=== PATIENT | male | born 1955 | race Caucasian/White ===

== ENCOUNTER 2019-01-14 07:25 | Inpatient (IN) | payer BC ==
[~2019-01-14] VITALS: Ht 182.9 cm; Wt 106.0 kg
[2019-01-14] MEDS ORDERED: nitroGLYCERIN 0.4mg SUBLingual tab SL PRN ×3 (07:45→09:30)
[2019-01-14] MEDS ORDERED: metoprolol tartrate 1mg/ml inj IV ONE (07:55)
[2019-01-14] MEDS ORDERED: atorvastatin 20mg tablet PO SCH (08:00)
[2019-01-14 08:20] LABS: BASOPHILS # (AUTO) 0.1 X10'3 (0-0.2); EOSINOPHILS % (AUTO) 0.3 % (0-6); LYMPHOCYTES # (AUTO) 1.4 X10'3 (1.1-4.8); LYMPHOCYTES % (AUTO) 10.8 % (21-51); NEUTROPHILS % (AUTO) 80.3 % (42-75)
[2019-01-14 08:23] LABS: BASOPHILS % (AUTO) 0.5 % (0-1); HEMATOCRIT 48.6 % (42.0-52.0); HEMOGLOBIN 16.9 g/dl (14.0-17.9); MEAN CORPUSCULAR HEMOGLOBIN 32.2 PG (27.0-31.0); MEAN CORPUSCULAR HGB CONC 34.8 g/dL (33.0-36.5); MEAN CORPUSCULAR VOLUME 92.4 FL (78-98); MEAN PLATELET VOLUME 9.2 FL (7.4-10.4); MONOCYTES % (AUTO) 8.1 % (2-12); NEUTROPHILS # (AUTO) 10.2 X10'3 (1.8-7.7); PLATELET COUNT 155 X10'3 (140-440); RED BLOOD COUNT 5.26 X10'6 (4.70-6.10); RED CELL DISTRIBUTION WIDTH 13.8 % (11.5-14.5); WHITE BLOOD COUNT 12.7 X10'3 (4.5-11.0)
[2019-01-14 08:50] LABS: ALANINE AMINOTRANSFERASE 21 U/L (12-78); ALBUMIN 3.6 G/DL (3.4-5.0); ALBUMIN/GLOBULIN RATIO 0.8 (1.1-1.5); ALKALINE PHOSPHATASE 69 IU/L (46-116); ANION GAP 8 (8-16); ASPARTATE AMINO TRANSFERASE 15 U/L (10-37); BLOOD UREA NITROGEN 13 MG/DL (7-18); BUN/CREATININE RATIO 13.4 (5.4-32.0); CALCIUM 9.1 MG/DL (8.5-10.1); CHLORIDE 100 MMOL/L (99-107); CREATININE 0.97 MG/DL (0.60-1.10); GLUCOSE 128 MG/DL (70-104); POTASSIUM 4.1 MMOL/L (3.5-5.1); SODIUM 134 MMOL/L (135-145); TOTAL PROTEIN 8.1 G/DL (6.4-8.2); TROPONIN I < 0.04 NG/ML (0.0-0.05); eGFR 78 ML/MIN
[2019-01-14] MEDS ORDERED: metoprolol tartrate 1mg/ml inj IV PRN (09:30)
[2019-01-14] MEDS ORDERED: potassium Cl 20 mEq SR tablet PO PRN ×2 (09:30)
[2019-01-14] MEDS ORDERED: ondansetron/PF 4mg/2ml inj IV PRN (09:30)
[2019-01-14] MEDS ORDERED: bisacodyl 10mg suppository rectal RC PRN (09:30)
[2019-01-14] MEDS ORDERED: magnesium 4gm in 100ml NS 100 ML IV PRN (09:30)
[2019-01-14] MEDS: metoprolol succinate 25mg (24-HOUR) SR. Tablet PO SCH ×2 (09:30→10:10)
[2019-01-14] MEDS ORDERED: acetaminophen 325mg tablet PO PRN ×2 (09:30)
[2019-01-14] MEDS ORDERED: HYDROcodone/acetaminophen 10/325mg tab PO PRN (09:30)
[2019-01-14] MEDS ORDERED: aspirin 325mg tablet PO ONE (09:30)
[2019-01-14] MEDS ORDERED: ketorolac trometh. 30mg/ml inj. IV ONE (09:30)
[2019-01-14] MEDS ORDERED: potassium CL 10mEq/100ml bag 100 ML IV PRN ×2 (09:30)
[2019-01-14] MEDS ORDERED: HYDROcodone/acetaminophen 5mg/325mg tablet PO PRN (09:30)
[2019-01-14] MEDS ORDERED: acetaminophen 650mg rectal suppository RC PRN (09:30)
[2019-01-14] MEDS ORDERED: morphine 2 MG/ML inj. syringe IV PRN ×2 (09:30)
[2019-01-14] MEDS ORDERED: aminophylline 250mg/10ml inj. IV PRN (09:30)
[2019-01-14] MEDS ORDERED: magnesium hydroxide 30ml (MOM) UD suspension PO PRN (09:30)
[2019-01-14] MEDS ORDERED: regadenoson 0.4mg/5ml syringe IV PRN (09:30)
[2019-01-14] MEDS ORDERED: magnesium Cl slow-release 64mg tablet PO PRN (09:30)
[2019-01-14] MEDS ORDERED: mag hydrox/Alum hydrox/simeth 30ml oral suspension PO PRN (09:30)
[2019-01-14] MEDS ORDERED: diphenhydrAMINE 25mg capsule PO PRN (09:30)
[2019-01-14] MEDS ORDERED: magnesium 2GM in 50ml NS 50 ML IV PRN (09:30)
[2019-01-14 09:39] LABS: PLATELET ESTIMATE NORMAL; TOTAL CELLS COUNTED 100
[2019-01-14 09:40] LABS: ANISOCYTOSIS FEW; TOXIC GRANULATION 1+
[2019-01-14] MEDS: K and/or MAG REPLACEMENT MC SCH (10:09)
[2019-01-14] MEDS: normal saline 1000ml 1,000 ML IV SCH ×2 (10:10→19:56)
[2019-01-14 10:19] LABS: D-DIMER 5.33 MG/L FEU (0-0.50)
[2019-01-14 10:59] LABS: CLARITY,URINE CLEAR (Clear); COLOR,URINE YELLOW (Yellow); GLUCOSE, URINE NEGATIVE (Neg); KETONES,URINE NEGATIVE (Neg); LEUKOCYTE ESTERASE ,URINE NEGATIVE (Neg); NITRITES, URINE NEGATIVE (Neg); OCCULT BLOOD,URINE NEGATIVE (Neg); PH,URINE 6.5 (4.8-8.0); PROTEIN,URINE TRACE mg/dl (Neg); UROBILINOGEN,URINE 0.2 E.U/dL (0.2-1.0)
--- NOTE | 2019-01-14 11:00 | NUR ---
Patient in room ED 6. I have received report from YUDI Brewer and had the opportunity to ask questions and assume patient care.
[2019-01-14 11:07] LABS: UA COLLECTION TYPE URINAL
--- NOTE | 2019-01-14 11:11 | NUR ---
Pt arrived on unit.
[2019-01-14 11:21] LABS: SQUAMOUS EPITHELIAL CELL,UR NONE SEEN /LPF (FEW)
[2019-01-14 11:23] LABS: RBC,URINE NONE SEEN /HPF (0-2); WBC,URINE NONE SEEN /HPF (0-4)
[2019-01-14 11:26] LABS: BACTERIA,URINE NONE SEEN /HPF (Neg)
[2019-01-14 11:30] VITALS: BP 168/96
[2019-01-14 11:59] LABS: HEMOGLOBIN A1C 5.8 % (4.5-6.2)
[2019-01-14] MEDS ORDERED: TIZA4TAB11 PO (12:32)
[2019-01-14] MEDS ORDERED: LISI-600 PO (12:37)
[2019-01-14] MEDS ORDERED: TRAZ150T78 PO (12:37)
--- NOTE | 2019-01-14 13:44 | NUR ---
Sent to Dr Zurita PAGER ID: [phone] MESSAGE: RE: Yayo Tellez [id number]. FYI pt drinks 4-5 beers/night and/or trazodone to relax. -Astrid [phone]
[2019-01-14 15:00] VITALS: BP 188/99
[2019-01-14] MEDS ORDERED: iohexol 350MG/ML 100ml bottle IV ONE (15:17)
[2019-01-14] MEDS ORDERED: thiamine inj. 100 MG in normal saline 100ml IV soln 100 ML IV ONE (16:40)
[2019-01-14] MEDS ORDERED: LORazepam 2 mg/ml vial IV PRN (16:40)
[2019-01-14] MEDS ORDERED: LORazepam 1 MG tablet PO PRN (16:40)
--- NOTE | 2019-01-14 17:35 | NUR ---
Sent to Dr Zurita PAGER ID: [phone] MESSAGE: RE: Yayo Tellez 3023C. Pt BP 178. -Astrid [phone]
--- NOTE | 2019-01-14 18:05 | NUR ---
Patient in room PCU 3023. I have received report from Astrid BAGLEY and had the opportunity to ask questions and assume patient care.
--- NOTE | 2019-01-14 18:07 | NUR ---
Sent to Dr Zurita PAGER ID: [phone] MESSAGE: RE: Yayo Tellez [id number]. Pt DID receive metoprolol IV push this AM, but NO metoprolol PO SR. Do you still want to give a dose now? -Astrid [phone]
[2019-01-14] MEDS ORDERED: amLODIPine 5mg tablet PO ONE (18:15)
[2019-01-14] MEDS ORDERED: metoprolol succinate 25mg (24-HOUR) SR. Tablet PO ONE (18:15)
--- NOTE | 2019-01-14 18:21 | NUR ---
SPoke with Dr Zurita about pt's BP, he did not receive PO lopressor in ER, but did receive IVP. Dr Zurita aware and ordered amlodipine 5mg PO and lopressor 50mg PO ER now.
--- NOTE | 2019-01-14 18:26 | NUR ---
Problems reprioritized. Patient report given, questions answered & plan of care reviewed with YUDI Santiago.
[2019-01-14 19:00] VITALS: BP 169/92
[2019-01-14] MEDS ORDERED: heparin 10,000 units/1 ML INJ IV ONE (19:55)
[2019-01-14] MEDS: levoFLOXACIN-Levaquin 750MG/D5 150 ML IV SCH (19:57)
[2019-01-14] MEDS ORDERED: heparin, porcine 5000 units/ml vial SQ SCH (20:00)
[2019-01-14] MEDS ORDERED: apixaban 5mg tablet PO SCH (20:00)
[2019-01-14] MEDS: tizanidine 4mg tablet PO SCH (20:01)
[2019-01-14] MEDS: traZODone 150mg tablet PO SCH (20:05)
[2019-01-14] MEDS: lisinopril 20mg tablet PO SCH (20:05)
[2019-01-14] MEDS: heparin 25,000 UNIT/250ml bag 250 ML IV SCH (22:05)
[2019-01-14 23:00] VITALS: BP 164/86
[2019-01-15] VITALS (9 sets, daily range): BP systolic 117–160; BP diastolic 59–106
[2019-01-15 01:09] LABS: CLARITY,URINE CLEAR (Clear); COLOR,URINE YELLOW (Yellow); GLUCOSE, URINE NEGATIVE (Neg); KETONES,URINE NEGATIVE (Neg); LEUKOCYTE ESTERASE ,URINE NEGATIVE (Neg); NITRITES, URINE NEGATIVE (Neg); OCCULT BLOOD,URINE NEGATIVE (Neg); PH,URINE 7.5 (4.8-8.0); PROTEIN,URINE TRACE mg/dl (Neg)
[2019-01-15 01:14] LABS: UA COLLECTION TYPE CLN CATCH MIDSTREAM
[2019-01-15 01:17] LABS: RBC,URINE NONE SEEN /HPF (0-2)
[2019-01-15 01:18] LABS: BACTERIA,URINE FEW /HPF (Neg); SQUAMOUS EPITHELIAL CELL,UR FEW /LPF (FEW); URINE AMPHETAMINE SCREEN NEGATIVE (Neg); URINE BARBITUATE SCREEN NEGATIVE (Neg); URINE BENZODIAZEPINES SCREEN NEGATIVE (Neg); URINE CANNABINOID SCREEN POSITIVE (Neg); URINE COCAINE SCREEN NEGATIVE (Neg); URINE METHADONE SCREEN NEGATIVE (Neg); URINE OPIATE SCREEN NEGATIVE (Neg); URINE PHENCYCLIDINE SCREEN NEGATIVE (Neg)
[2019-01-15 01:19] LABS: WBC,URINE NONE SEEN /HPF (0-4)
[2019-01-15 06:01] LABS: EOSINOPHILS % (AUTO) 0.4 % (0-6); HEMOGLOBIN 17.1 g/dl (14.0-17.9); NEUTROPHILS # (AUTO) 10.5 X10'3 (1.8-7.7); WHITE BLOOD COUNT 13.3 X10'3 (4.5-11.0)
[2019-01-15 06:03] LABS: BASOPHILS # (AUTO) 0.1 X10'3 (0-0.2); BASOPHILS % (AUTO) 0.6 % (0-1); HEMATOCRIT 49.8 % (42.0-52.0); LYMPHOCYTES # (AUTO) 1.7 X10'3 (1.1-4.8); LYMPHOCYTES % (AUTO) 12.8 % (21-51); MEAN CORPUSCULAR HEMOGLOBIN 32.2 PG (27.0-31.0); MEAN CORPUSCULAR HGB CONC 34.4 g/dL (33.0-36.5); MEAN CORPUSCULAR VOLUME 93.7 FL (78-98); MEAN PLATELET VOLUME 9.6 FL (7.4-10.4); MONOCYTES % (AUTO) 7.7 % (2-12); NEUTROPHILS % (AUTO) 78.5 % (42-75); PLATELET COUNT 162 X10'3 (140-440); RED BLOOD COUNT 5.32 X10'6 (4.70-6.10); RED CELL DISTRIBUTION WIDTH 13.6 % (11.5-14.5)
[2019-01-15 06:18] LABS: ALANINE AMINOTRANSFERASE 42 U/L (12-78); ALBUMIN 3.1 G/DL (3.4-5.0); ALBUMIN/GLOBULIN RATIO 0.7 (1.1-1.5); ALKALINE PHOSPHATASE 81 IU/L (46-116); ANION GAP 10 (8-16); ASPARTATE AMINO TRANSFERASE 41 U/L (10-37); BILIRUBIN,TOTAL 0.8 MG/DL (0.1-1.0); BLOOD UREA NITROGEN 11 MG/DL (7-18); BUN/CREATININE RATIO 12.6 (5.4-32.0); CALCIUM 8.5 MG/DL (8.5-10.1); CHLORIDE 101 MMOL/L (99-107); CREATININE 0.87 MG/DL (0.60-1.10); GLUCOSE 133 MG/DL (70-104); POTASSIUM 3.9 MMOL/L (3.5-5.1); SODIUM 135 MMOL/L (135-145); TOTAL CARBON DIOXIDE 24.3 MMOL/L (24-32); TOTAL PROTEIN 7.6 G/DL (6.4-8.2); eGFR 89 ML/MIN
--- NOTE | 2019-01-15 06:20 | NUR ---
Problems reprioritized. Patient report given, questions answered & plan of care reviewed with Ese BAGLEY.
[2019-01-15 06:22] LABS: AMYLASE 56 U/L (25-115); CHOL/HDL RATIO 2.1 (0.00-4.99); CHOLESTEROL 152 MG/DL (0-200); HDL CHOLESTEROL 72 MG/DL (35-60); LIPASE 213 U/L (73-393); PHOSPHORUS 2.3 MG/DL (2.3-4.5); TRIGLYCERIDES 57 MG/DL (20-135)
--- NOTE | 2019-01-15 06:32 | NUR ---
Patient in room PCU 3023. I have received report from Jennifer BAGLEY and had the opportunity to ask questions and assume patient care.
[2019-01-15 06:34] LABS: LDL CHOLESTEROL 76 MG/DL (50-100)
[2019-01-15] MEDS ORDERED: lisinopril 5mg tablet PO SCH (08:00)
[2019-01-15] MEDS ORDERED: aspirin 81mg tablet.DR PO SCH ×2 (08:00→15:17)
[2019-01-15] MEDS: K and/or MAG REPLACEMENT MC SCH (08:00)
[2019-01-15] MEDS ORDERED: aspirin 325mg tablet PO SCH (08:30)
[2019-01-15] MEDS: multivitamins, therapeutics tablet PO SCH (08:31)
[2019-01-15] MEDS: lisinopril 20mg tablet PO SCH ×2 (08:31→19:25)
[2019-01-15] MEDS: atorvastatin 10mg tablet PO SCH (08:32)
[2019-01-15] MEDS: metoprolol succinate 25mg (24-HOUR) SR. Tablet PO SCH (08:32)
[2019-01-15] MEDS: thiamine 100mg tablet PO SCH (08:32)
[2019-01-15] MEDS: folic acid 1mg tablet PO SCH (08:33)
[2019-01-15] MEDS: amLODIPine 5mg tablet PO SCH (08:33)
[2019-01-15] MEDS: levoFLOXACIN-Levaquin 750MG/D5 150 ML IV SCH (08:35)
[2019-01-15] MEDS: normal saline 1000ml 1,000 ML IV SCH ×2 (08:36→15:28)
--- NOTE | 2019-01-15 08:51 | NUR ---
Page PAGER ID: [phone] MESSAGE: Room 3023C Yayo Tellez: Patient's HR is no in A-Fib with HR in the 120's, please advise. Thank you, Ese ext [phone]
[2019-01-15] MEDS: tizanidine 4mg tablet PO SCH ×2 (09:00→19:24)
[2019-01-15] MEDS ORDERED: diltiazem 5mg/ml 5ml inj. IV ONE (09:05)
[2019-01-15] MEDS ORDERED: diltiazem-D5W 125mg/125ml 125 ML IV SCH (09:05)
--- NOTE | 2019-01-15 09:45 | NUR ---
Page Dr. Zurita PAGER ID: [phone] MESSAGE: Room 3023C Yayo Tellez: Patient will receive the resting portion of the Betty scan now and will complete the stress portion later this afternoon due to Sherie luevano, they wanted to make sure he was stable. JACKELIN, thank you Ese ext [phone]
--- NOTE | 2019-01-15 10:00 | NUR ---
Spoke with Dr. Zurita regarding patient's condition. Ordered one time dose 10mg Cardizem IV push. Then Cardizem drip at 5mg for patient's A-Fib.
[2019-01-15] MEDS ORDERED: diltiazem-D5W 125mg/125ml 100 ML IV SCH (10:10)
[2019-01-15] MEDS: heparin 25,000 UNIT/250ml bag 250 ML IV SCH ×3 (10:34→23:22)
[2019-01-15] MEDS: diltiazem-NS 100mg/100ml 100 ML IV SCH (11:07)
--- NOTE | 2019-01-15 12:15 | NUR ---
Page Dr. Zurita PAGER ID: [phone] MESSAGE: Room 3023C Yayo Tellez: Just Dr. Ayo johnson canceled patient's Betty Scan due to his PE. Can we take him off NPO and place on Heart Healthy diet? Thank you, Ese ext [phone]
[2019-01-15] MEDS: heparin 10,000 units/1 ML INJ IV PRN ×2 (14:17→21:15)
--- NOTE | 2019-01-15 14:32 | NUR ---
Page Dr. Zurita PAGER ID: [phone] MESSAGE: Room 3023C [place] med[place]: Patient's troponin 0.04. Just elizabeth, thank you, Ese ext [phone]
--- NOTE | 2019-01-15 17:14 | NUR ---
Page Dr. 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 Thank you, Ese ext [phone].
--- NOTE | 2019-01-15 18:24 | NUR ---
Problems reprioritized. Patient report given, questions answered & plan of care reviewed with Karina BAGLEY. Patient stable at time of transfer of care.
--- NOTE | 2019-01-15 18:34 | NUR ---
Patient in room PCU 3023. I have received report from Ese BAGLEY and had the opportunity to ask questions and assume patient care.
[2019-01-15] MEDS: lactobacillus rhamnosus 10,000 MMU CELLS/CAPSULE PO SCH (19:24)
[2019-01-15] MEDS: traZODone 150mg tablet PO SCH (19:54)
[2019-01-16] VITALS: BP 161/75
[2019-01-16] MEDS: normal saline 1000ml 1,000 ML IV SCH ×2 (00:18→07:20)
[2019-01-16] MEDS: diltiazem-NS 100mg/100ml 100 ML IV SCH (00:27)
[2019-01-16 02:00] VITALS: BP 119/62
[2019-01-16 03:36] LABS: BASOPHILS # (AUTO) 0.1 X10'3 (0-0.2); BASOPHILS % (AUTO) 0.7 % (0-1); EOSINOPHILS % (AUTO) 0.3 % (0-6); HEMATOCRIT 47.1 % (42.0-52.0); HEMOGLOBIN 16.2 g/dl (14.0-17.9); LYMPHOCYTES # (AUTO) 1.5 X10'3 (1.1-4.8); LYMPHOCYTES % (AUTO) 14.2 % (21-51); MEAN CORPUSCULAR HEMOGLOBIN 32.2 PG (27.0-31.0); MEAN CORPUSCULAR HGB CONC 34.3 g/dL (33.0-36.5); MEAN PLATELET VOLUME 9.7 FL (7.4-10.4); MONOCYTES # (AUTO) 0.9 X10'3 (0-0.9); MONOCYTES % (AUTO) 8.5 % (2-12); NEUTROPHILS # (AUTO) 8.3 X10'3 (1.8-7.7); NEUTROPHILS % (AUTO) 76.3 % (42-75); PLATELET COUNT 149 X10'3 (140-440); RED BLOOD COUNT 5.01 X10'6 (4.70-6.10); RED CELL DISTRIBUTION WIDTH 13.6 % (11.5-14.5); WHITE BLOOD COUNT 10.9 X10'3 (4.5-11.0)
[2019-01-16 03:49] LABS: ALANINE AMINOTRANSFERASE 85 U/L (12-78); ALBUMIN 2.6 G/DL (3.4-5.0); ALBUMIN/GLOBULIN RATIO 0.6 (1.1-1.5); ALKALINE PHOSPHATASE 97 IU/L (46-116); AMYLASE 29 U/L (25-115); ANION GAP 10 (8-16); ASPARTATE AMINO TRANSFERASE 64 U/L (10-37); BILIRUBIN,TOTAL 0.8 MG/DL (0.1-1.0); BLOOD UREA NITROGEN 14 MG/DL (7-18); BUN/CREATININE RATIO 16.7 (5.4-32.0); CALCIUM 8.6 MG/DL (8.5-10.1); CHLORIDE 101 MMOL/L (99-107); CREATININE 0.84 MG/DL (0.60-1.10); GLUCOSE 136 MG/DL (70-104); LIPASE 107 U/L (73-393); MAGNESIUM 1.9 MG/DL (1.5-2.4); PHOSPHORUS 1.9 MG/DL (2.3-4.5); POTASSIUM 3.6 MMOL/L (3.5-5.1); SODIUM 135 MMOL/L (135-145); TOTAL CARBON DIOXIDE 23.9 MMOL/L (24-32); TOTAL PROTEIN 6.8 G/DL (6.4-8.2); eGFR > 90 ML/MIN
[2019-01-16 04:00] VITALS: BP 133/82
[2019-01-16 06:00] VITALS: BP 146/86
--- NOTE | 2019-01-16 06:10 | NUR ---
Patient in room PCU 3023. I have received report from Karina BAGLEY and had the opportunity to ask questions and assume patient care.
--- NOTE | 2019-01-16 06:14 | NUR ---
Problems reprioritized. Patient report given, questions answered & plan of care reviewed with Ese BAGLEY.
[2019-01-16] MEDS: atorvastatin 10mg tablet PO SCH (07:20)
[2019-01-16] MEDS: multivitamins, therapeutics tablet PO SCH (07:20)
[2019-01-16] MEDS: folic acid 1mg tablet PO SCH (07:20)
[2019-01-16] MEDS: amLODIPine 5mg tablet PO SCH (07:21)
[2019-01-16] MEDS: thiamine 100mg tablet PO SCH (07:21)
[2019-01-16] MEDS: metoprolol succinate 25mg (24-HOUR) SR. Tablet PO SCH (07:21)
[2019-01-16] MEDS: tizanidine 4mg tablet PO SCH (07:22)
[2019-01-16] MEDS: lactobacillus rhamnosus 10,000 MMU CELLS/CAPSULE PO SCH (07:22)
[2019-01-16] MEDS: lisinopril 20mg tablet PO SCH (07:22)
[2019-01-16] MEDS: K and/or MAG REPLACEMENT MC SCH (08:00)
[2019-01-16] MEDS ORDERED: apixaban 5mg tablet PO SCH (10:10)
[2019-01-16] MEDS ORDERED: metoprolol succinate 25mg (24-HOUR) SR. Tablet PO SCH ×2 (10:10→10:45)
[2019-01-16] MEDS ORDERED: LEVO750T46 PO (10:16)
[2019-01-16] MEDS ORDERED: ATOR10TA PO (10:16)
[2019-01-16] MEDS ORDERED: ASPI-1071 PO (10:16)
[2019-01-16] MEDS ORDERED: thiamine tablet PO (10:16)
[2019-01-16] MEDS ORDERED: NITR0.4T51 SL (10:16)
[2019-01-16] MEDS ORDERED: METO-395 PO (10:16)
[2019-01-16] MEDS ORDERED: MULT-1179 PO (10:16)
[2019-01-16] MEDS ORDERED: LACT1CAP26 PO (10:16)
[2019-01-16] MEDS ORDERED: folic acid tablet PO (10:16)
[2019-01-16] MEDS ORDERED: APIX5TAB3 PO (10:16)
[2019-01-16] MEDS ORDERED: metoprolol tartrate 50mg tablet PO ONE (10:30)
[2019-01-16 11:00] VITALS: BP 138/91
[2019-01-16] MEDS ORDERED: levoFLOXACIN 750MG TABLET PO SCH (11:00)
--- NOTE | 2019-01-16 12:32 | NUR ---
Patient stable for discharge per MD orders. All discharge instructions reviewed with patient and all questions answered. New prescriptions e-scripted to patient's preferred pharmacy. PIV and bedside monitor discontinued. Belongings collected and sent with patient. Patient left in private vehicle with family. Patient walked down to lobby with PCT aide.
--- NOTE | 2019-01-16 15:48 | NUR ---
Page Dr. Zurita PAGER ID: [phone] MESSAGE: Room 3023C Yayo Tellez: Patient who was discharged today called and stated his insurance will not cover the Eliquis without authorization. Could we get authorization for him? Thank you, Ese ext [phone].
--- NOTE | 2019-01-16 17:24 | NUR ---
Spoke with Dr. Zurita regarding patient's need for authorization for Eliquis. Dr. Zurita requested that case management to speak with patient's insurance tomorrow to provide authorization for medication. Information will be relayed to case management in the morning.
[2019-01-17 08:10] LABS: % FREE PSA 26.4 % (.); PSA, FREE 0.29 ng/mL
--- NOTE | 2019-01-17 11:22 | NUR ---
Spoke with case management regarding patient's insurance authorization and provided her the patient's information to help obtain authorization for the medication.
== END 2019-01-16 12:32 | disposition home or self-care (01) | DRG 175 ==
LOC: ER 07:26 → ED HOLD 10:42 → EDBEDREQ 10:48 → PCU 3S 11:11
PROVIDERS: ADMIT Family Medicine; ATTEND Family Medicine
DX: I26.99 Other pulmonary embolism without acute cor pulmonale (principal); J18.1 Lobar pneumonia, unspecified organism; J91.8 Pleural effusion in other conditions classified elsewhere; I10 Essential (primary) hypertension; Z90.49 Acquired absence of other specified parts of digestive tract; M47.9 Spondylosis, unspecified; I48.91 Unspecified atrial fibrillation; G47.00 Insomnia, unspecified; F32.9 Major depressive disorder, single episode, unspecified; F41.9 Anxiety disorder, unspecified; F10.10 Alcohol abuse, uncomplicated; Y90.9 Presence of alcohol in blood, level not specified; M62.838 Other muscle spasm; F12.10 Cannabis abuse, uncomplicated; E78.5 Hyperlipidemia, unspecified; R00.0 Tachycardia, unspecified; Z82.49 Family history of ischemic heart disease and other diseases of the circulatory system; Z81.8 Family history of other mental and behavioral disorders; Z71.51 Drug abuse counseling and surveillance of drug abuser; Z79.899 Other long term (current) drug therapy
CPT/HCPCS: 36415; 71045; 71250; 71275; 74176; 78451; 80053; 80061; 80305; 81001; 82150; 83036; 83690; 83735; 84100; 84153; 84154; 84443; 84484; 85025; 85379; 85610; 85730; 87081; 93005; 93306; 93970; 96374; 96375; 99291; A9500; G0378; J1644; J1885; J1956; J3411; J3490; J7030; Q9967

== ENCOUNTER 2024-07-04 06:29 | Inpatient (IN) | payer BC, MEDICARE ==
[~2024-07-04] VITALS: Ht 182.9 cm; Wt 97.3 kg
[~2024-07-04 06:29] MED LIST: APIX5TAB3 PO; ASPI-1071 PO; ATOR10TA PO; LACT1CAP26 PO; LEVO750T68 PO; LISI20TA28 PO; METO-395 PO; MULT-25 PO; NITR0.4T51 SL; TRAZ150T78 PO; folic acid tablet PO; thiamine tablet PO
[2024-07-04] MEDS ORDERED: iohexol 350MG/ML 100ml bottle IV ONE (06:42)
--- NOTE | 2024-07-04 06:49 | Physician Documentation ---
History of Present Illness ~ Chief Complaint: Stroke Alert Stated Complaint: STROKE Time Seen by MD: 06:36 OK to notify your PCP?: Yes Source: patient, RN/MD, RN notes reviewed, old records Mode of Arrival: POV Exam Limitations: no limitations HPI This patient has a history of DVTs on Xarelto compliant with his medications. Patient went to sleep at 8:00 p.m. last night and was doing fine he was not fatigued or tired normal evening. Unfortunately when he woke up he had slurred speech and left-sided upper extremity weakness. Patient is able to ambulate has good balance he denies any fevers or chills no sick contacts no nausea vomiting no vision changes. He is otherwise in good health has no other complaints at this time. His is at the bedside. Medication Reconciliation Allergies: Coded Allergies: No Known Allergies (Unverified , 01/14/19) Scheduled Apixaban (Eliquis), 10 MG PO BID Aspirin (Ecotrin*), 81 MG PO DAILY@0830 Atorvastatin Calcium (Lipitor), 40 MG PO DAILY Lactobacillus Rhamnosus (Culturelle), 10,000 MMU PO Q12H Levofloxacin (Levofloxacin), 750 MG PO DAILY@11 Lisinopril (Lisinopril), 1 TAB PO BID, (Reported) Metoprolol Succinate (Metoprolol Succinate), 100 MG PO DAILY Multivitamin with Folic Acid (Thera Tablet), 1 EACH PO Q24H Trazodone Hcl (Trazodone Hcl), 1 TAB PO HS, (Reported) [folic acid tablet], 2 MG PO DAILY [thiamine tablet], 100 MG PO DAILY Scheduled PRN Nitroglycerin SL* (Nitrostat SL*), 0.4 MG SL Q5MIN PRN for chest pain Past Medical History Past Medical History: Hypertension Past Surgical History: no surgical history Drug Use: none Lives In: Home Review of Systems All Other Systems at this time: Reviewed and Negative Physical Exam Vital Signs: RN Vital Signs have been reviewed: Yes, Temperature: 98.0, Source: Temporal, Heart Rate: 83, Respiratory Rate: 16, BP: 145/100, Pulse Oximetry: 97, Weight: 97.300 Oxygen Flow Rate: 0 General Appearance General: The patient is well developed, well nourished, nontoxic appearing and is in no acute distress. Skin: [place], warm and dry with no rashes. HEENT: Head was normocephalic and atraumatic. Eyes - pupils equal, round, reactive to light and accommodation. Extraocular movements were intact. Conjunctivae were nonicteric. Ears - bilateral tympanic membranes were normal. The mouth and oropharynx were clear with moist mucous membranes. There were no pharyngeal exudates or erythema. Neck: Supple and nontender. There was no jugular venous distention, lymphadenopathy, thyromegaly or masses. Chest: Clear to auscultation bilaterally without wheezes, rales or rhonchi. No accessory muscle use. No dullness to percussion. Heart: Rate regular and rhythmic. S1, S2. No murmurs. Palpation of the chest wall was normal. No rubs or thrills. Abdomen: Soft, nontender and nondistended. Positive bowel sounds. No guarding or rebound. No hepatosplenomegaly or palpable masses. Extremities: No cyanosis, clubbing or edema. The patient moves all extremities. Pulses were equal and symmetric. Neurologic: Slurred speech. Left upper extremity 4/5 weakness. Normal gait. Equal ocular movements intact. Unable to extend his left hand slight pronator drift. Psychologic: The patient was oriented to person, place and time. The patient demonstrated appropriate judgement and insight. Progress Progress Note Patient discussed with tele neurology 7:45 a.m. discussed the case with the hospitalist for admission Results/Orders Reviewed/noted all lab results: Yes Results/Orders Orders - MACHO HERNANDEZ MD Monitor (07/04/24 06:34) 2 Large Bore Ivs (07/04/24 06:34) Electrocardiogram (07/04/24 06:34) Chest,Single View (07/04/24 07:00) Accucheck (07/04/24 06:34) Ct Stroke Alert (07/04/24 06:46) BMP (07/04/24 06:34) Cta Neck/Head (07/04/24 06:50) [place] Prov.Neuro Consult (07/04/24 06:34) Page Hospitalist (07/04/24 07:38) Fill Out Med Reconciliation (07/04/24 07:38) Echocardiogram (07/04/24 07:40) Hgb A1c (07/04/24 06:38) Liver Panel (07/04/24 06:38) MG (07/04/24 06:38) Completed Orders - MACHO HERNANDEZ MD Cbc/Diff (07/04/24 06:34) Electrocardiogram (07/04/24 06:34) Chest,Single View (07/04/24 07:00) Ct Stroke Alert (07/04/24 06:46) PTT (07/04/24 06:34) Pt Inr (07/04/24 06:34) Cta Neck/Head (07/04/24 06:50) Iohexol 350mg/Ml 100ml (Omnipaque 350mg/ (07/04/24 06:42) Aspirin 81mg Chew Tablet (Aspirin 81mg C (07/04/24 07:05) Medications Received in ER Medications (Trade) Dose Ordered Sig/Sirena Route PRN Reason Start Time Stop Time Status Last Admin Dose Admin (aspirin 81MG chew tablet) 324 mg ONCE ONCE PO 07/04/24 07:05 07/04/24 07:06 DC 07/04/24 07:31 324 MG Vital Signs 07/04/24 07/04/24 07/04/24 07/04/24 06:36 07:10 07:10 07:26 Temp 98.0 Pulse 83 74 76 Resp 16 15 15 17 B/P (MAP) 145/100 138/91 138/91 (107) Pulse Ox 97 96 95 O2 Flow Rate 0 07/04/24 07:49 Pulse 91 Resp 18 B/P (MAP) 138/91 (107) Pulse Ox 96 Laboratory Tests Test 07/04/24 06:37 07/04/24 06:38 Glucometer 114 H White Blood Count 6.5 Red Blood Count 5.26 Hemoglobin 17.0 Hematocrit 49.7 Mean Corpuscular Volume 94.6 Mean Corpuscular Hemoglobin 32.2 H Mean Corpuscular Hemoglobin Concent 34.1 Red Cell Distribution Width 14.0 Platelet Count 166 Mean Platelet Volume 9.6 Neutrophils (%) (Auto) 60.5 Lymphocytes (%) (Auto) 27.0 Monocytes (%) (Auto) 6.8 Eosinophils (%) (Auto) 4.3 Basophils (%) (Auto) 1.4 H Neutrophils # (Auto) 4.0 Lymphocytes # (Auto) 1.8 Monocytes # (Auto) 0.4 Eosinophils # (Auto) 0.3 Basophils # (Auto) 0.1 CBC Comment Prothrombin Time 12.5 H INR International Normalized Ratio 1.2 Activated Partial Thromboplast Time 32 Coagulation Comments Sodium Level 138 Potassium Level 4.0 Chloride Level 104 Carbon Dioxide Level 28.6 Anion Gap 5 L Blood Urea Nitrogen 17 Creatinine 1.26 H Estimated GFR/1.73 m2 57 BUN/Creatinine Ratio 13.5 Glucose Level 115 H Calcium Level 9.3 Albumin 4.0 Chemistry Comments Re-Evaluation Re-Evaluation : Re-Evaluation: Improved Progress Patient does have some drooling on the left side of his mouth difficulty with speech. CT scan of the head was negative for any intracranial bleed which was reassuring. Tele neurology was consulted at 7:00 a.m. who recommended aspirin and a call back if the CTA is positive. Patient's vitals were reassuring he received the aspirin and pending admission. 8:00 a.m. patient was seen and examined. Patient is given reassurance. The patient had a stroke alert called. There are no large vessel occlusions that are treatable. Unfortunately he is still having symptoms and may have some permanent disability. Patient was given some fluids. Patient's received the aspirin, echocardiogram was ordered and stroke workup was also ordered in the hospitalist was consulted. Laboratory work shows a normal CBC no signs of infection or anemia chemistry also within normal limits slight BUN 17 creatinine 1.26 with a GFR of 57 glucose 115. Patient will be hydrated LFTs are pending. Coagulation within normal limits. Patient was then admitted for further workup and care. Case discussed with the hospitalist Continuous property assessment monitor interpretation shows normal sinus rhythm heart rate 80s, no ectopy, normal, my interpretation. Pulse oximetry monitor interpretation shows normal oxygenation 97% room air, normal, my interpretation. EKG/XRAY/CT/US/VASC/MRI EKG : Intepreting Monitor?: Yes Additional Comment Ordering Physician: MACHO HERNANDEZ MD Exam Name: ELECTROCARDIOGRAM Technologist: [facility] Test Date: 2024-07-04 Test Time: 07:05:19 Pat Name: PRASANNA BIRCH Department: [facility]- Room: Gender: Lehr Attendant: : 1955 Requested By: MACHO HERNANDEZ Order Number: [id number] Reading MD: Dr. Macho Hernandez Measurements Intervals [place] Rate: 86 P: 0 [place]: 0 QRS: -42 QRSD: 164 T: 48 QT: 420 QTc: 503 Interpretive Statements Atrial fibrillation RBBB and LAFB Baseline wander in lead(s) V2 Electronically Signed On 07-04-2024 7:36:[address] Macho Hernandez Please click the below link to view image of tracing. Chest X-Ray : Additional Comments EXAM: XR Chest, 1 View CLINICAL INDICATION: Stroke Alert TECHNIQUE: Frontal view of the chest. COMPARISON: None FINDINGS: LUNGS AND PLEURAL SPACES: Unremarkable. No consolidation. No pneumothorax. HEART: Unremarkable. No cardiomegaly. MEDIASTINUM: Unremarkable. Normal mediastinal contour. BONES/JOINTS: Unremarkable. No acute fracture. OTHER FINDINGS: . IMPRESSION: No acute cardiopulmonary process. #1: CT: head With Contrast?: No Impression EXAM: CT Head Without Intravenous Contrast CLINICAL INDICATION: Stroke Alert TECHNIQUE: Axial computed tomography images of the head/brain without intravenous contrast. This CT exam was performed using one or more of the following dose reduction techniques: automated exposure control, adjustment of the mA and/or kV according to patient size, and/or use of iterative reconstruction technique. CONTRAST: COMPARISON: None FINDINGS: BRAIN AND EXTRA-AXIAL SPACES: Areas of decreased attenuation in the deep cerebral white matter are consistent with small vessel ischemic/degenerative changes. The cerebral and cerebellar sulci are prominent consistent with brain atrophy. No acute intracranial hemorrhage, midline shift or mass effect. If symptoms persist, further evaluation with MRI is recommended. BONES/JOINTS: Unremarkable. No acute fracture. SOFT TISSUES: Unremarkable. SINUSES: Unremarkable as visualized. No acute sinusitis. MASTOID AIR CELLS: Unremarkable as visualized. No mastoid effusion. OTHER FINDINGS: . . IMPRESSION: 1. Small vessel ischemic/degenerative changes. 2. Generalized brain atrophy. 3. No acute intracranial hemorrhage, midline shift or mass effect. If symptoms persist, further evaluation with MRI is recommended. #2: CT: head With Contrast?: Yes Ultrasound : Impression CLINICAL INFORMATION: 68 years old, Male; Stroke Alert. TECHNIQUE: Axial CTA images of the head and neck were obtained after the uneventful administration of 100 mL Omnipaque 350 IV contrast. Coronal and sagittal reformatted images and MIP images were obtained, reviewed, and stored. Measurements of carotid stenosis are made per NASCET criteria. All CT scans at this medical facility are performed using dose modulation techniques as appropriate to a performed exam including the following: Automated exposure control was utilized; adjustment of the MA and/or KV according to patient size; and use of iterative reconstruction technique. CTDIvol = 30.6, 15.03, 0.07, 0.07 mGy DLP = 589.02 mGy-cm COMPARISON: None FINDINGS: CTA HEAD: Posterior cerebral arteries, basilar artery, and intracranial segments of the distal vertebral arteries are normal in caliber and course with no evidence of aneurysm, large vessel occlusion, significant stenosis, or vascular malformation. The anterior and middle cerebral arteries and intracranial segm ents of the distal internal carotid arteries are normal in caliber and course with no evidence of aneurysm, large vessel occlusion, significant stenosis, or vascular malformation. Aplastic left anterior cerebral artery A1 segment, with both A2 segments arising from the right A1 segment. CTA NECK: Normal configuration of the aortic arch with patent origins of the brachiocephalic artery, left common carotid artery, and left subclavian artery. Subclavian arteries are patent with no significant stenosis. Moderate calcified plaque of the right carotid bifurcation and mild calcified plaque of the left carotid bifurcation without significant stenosis. The bilateral common carotid, internal carotid, and external carotid arteries are otherwise patent with no significant stenosis or evidence of dissection. Vertebral arteries are patent with no significant stenosis or evidence of dissection. Left vertebral artery is dominant. IMPRESSION: 1. CTA head demonstrates no evidence of large vessel occlusion, aneurysm, or s ignificant stenosis. 2. CTA neck demonstrates no evidence of carotid or vertebral dissection or significant stenosis. 3. Additional findings as detailed above. Medical Decision Making Additional info obtained from: old records Differential Dx:Considerations: Include: Conway's [place], CVA, Electrolyte imbalance, Encephalopathy, Mass lesion, Subarachnoid Hemorrhage, TIA, Other Departure Admitted to Inpatient Unit: yes, to hospitalist Admission Level of Care: Neuro with Tele Impression: Primary Impression: Cerebral infarction Qualified Codes: I63.9 - Cerebral infarction, unspecified Condition: Guarded Referrals: NO PRIMARY CARE PROVIDER (PCP) Education Educated: Patient, Family Educated regarding: diagnosis, prognosis, need for follow up, other Critical Care Note Total Time (mins): 33 Critical Care Note The very real possibility of a deterioration of this patient's condition required the highest level of my preparedness for sudden, emergent intervention. I provided critical care services, which included medication orders, frequent reevaluations of the patient's condition and response to treatment, ordering and reviewing test results, and discussing the case with various consultants. Excludes time spent performing separately billable procedures. The critical care time associated with the care of the patient was. 33 minutes Signature Scribe Signature: No scribed Attestation: The note accurately reflects work and decisions made by me.Macho Hernandez MD 07/04/24 06:49 MACHO HERNANDEZ MD July 04, 2024 06:49
[2024-07-04 06:53] LABS: BASOPHILS # (AUTO) 0.1 X10'3 (0-0.2); BASOPHILS % (AUTO) 1.4 % (0-1); EOSINOPHILS # (AUTO) 0.3 X10'3 (0-0.9); EOSINOPHILS % (AUTO) 4.3 % (0-6); HEMATOCRIT 49.7 % (42.0-52.0); LYMPHOCYTES # (AUTO) 1.8 X10'3 (1.1-4.8); MEAN CORPUSCULAR HEMOGLOBIN 32.2 PG (27.0-31.0); MEAN CORPUSCULAR HGB CONC 34.1 g/dL (33.0-36.5); MEAN CORPUSCULAR VOLUME 94.6 FL (78-98); MEAN PLATELET VOLUME 9.6 FL (7.4-10.4); MONOCYTES # (AUTO) 0.4 X10'3 (0-0.9); MONOCYTES % (AUTO) 6.8 % (2-12); NEUTROPHILS % (AUTO) 60.5 % (42-75); PLATELET COUNT 166 X10'3 (140-440); RED BLOOD COUNT 5.26 X10'6 (4.70-6.10); WHITE BLOOD COUNT 6.5 X10'3 (4.5-11.0)
--- NOTE | 2024-07-04 06:59 | RADIOLOGY REPORT ---
EXAM: CT Head Without Intravenous Contrast CLINICAL INDICATION: Stroke Alert TECHNIQUE: Axial computed tomography images of the head/brain without intravenous contrast. This CT exam was performed using one or more of the following dose reduction techniques: automated exposure control, adjustment of the mA and/or kV according to patient size, and/or use of iterative reconstru ction technique. CONTRAST: COMPARISON: None FINDINGS: BRAIN AND EXTRA-AXIAL SPACES: Areas of decreased attenuation in the deep cerebral white matter are consistent with small vessel ischemic/degenerative changes. The cerebral and cerebellar sulci are pr ominent consistent with brain atrophy. No acute intracranial hemorrhage, midline shift or mass effec t. If symptoms persist, further evaluation with MRI is recommended. BONES/JOINTS: Unremarkable. No acute fracture. SOFT TISSUES: Unremarkable. SINUSES: Unremarkable as visualized. No acute sinusitis. MASTOID AIR CELLS: Unremarkable as visualized. No mastoid effusion. OTHER FINDINGS: . . IMPRESSION: 1. Small vessel ischemic/degenerative changes. 2. Generalized brain atrophy. 3. No acute intracranial hemorrhage, midline shift or mass effect. If symptoms persist, further eval uation with MRI is recommended.
--- NOTE | 2024-07-04 07:08 | ELECTROCARDIOGRAPH REPORT ---
[facility] Test Date: 2024-07-04 Test Time: 07:05:19 Pat Name: PRASANNA BIRCH Department: [facility] Patient ID: [facility]-[id number] Room: Gender: M Cloth Colorer: : 1955 Requested By: DALI ROMERO Order Number: [id number] Reading MD: Dr. Dali Romero Measurements Intervals [place] Rate: 86 P: 0 NM: 0 QRS: -42 QRSD: 164 T: 48 QT: 420 QTc: 503 Interpretive Statements Atrial fibrillation RBBB and LAFB Baseline wander in lead(s) V2 Electronically Signed On 07-04-2024 7:36:[address] Dali Romero Please click the below link to view image of tracing.
--- NOTE | 2024-07-04 07:10 | [facility] CONSULT REPORT ---
[facility] Procedure Note [facility] Procedure Note Consult [facility] Note # Demographics Consult Type: Acute Stroke Level 2 (4.5-24 hrs) Patient Location: Emergency Room First Name: Rosalinda Last Name: Yayo Date of : 1955 Age: 68 Gender: Male Facility: [facility] Time of Initial Page (): 07/04/2024 06:58 Time of Return Call (): 07/04/2024 06:59 # HPI History: Here with new slurred speech on waking up this morning. Last Known Normal: 1999 pst 07/03 # Scores Time of exam and NIHSS (): 07/04/2024 07:04 Level of Consciousness 1a: [0] = Alert; keenly responsive LOC Questions 1b: [0] = Answers both questions correctly LOC Commands 1c: [0] = Performs both tasks correctly Best Gaze 2: [0] = Normal Visual 3: [0] = No visual loss Facial Palsy 4: [2] = Partial paralysis Motor Arm Left 5a: [1] = Drift Motor Arm Right 5b: [0] = No drift Motor Leg Left 6a: [0] = No drift Motor Leg Right 6b: [0] = No drift Limb Ataxia 7: [0] = Absent Sensory 8: [0] = Normal Best Language 9: [0] = No aphasia Dysarthria 10: [1] = Fdkv-[id number]-[id number] dysarthria Extinction and Inattention 11: [0] = No abnormality NIHSS Total: 4 # Exam Vitals: vital signs reviewed # PMH-FH- Medications: - NOAC # Data Head CT: - no bleed - per radiologist read - preliminarily reviewed by me, please refer to radiology read for official reading # Assessment Impression: - Ischemic Stroke (Acute) # Plan Thrombolytic/Intervention: Possible IA candidate Thrombolytic Exclusion (3-4.5 hour window): - on anticoagulation Thrombolytic Exclusion: > 4.5 hours Possible IA Candidate: - no signs and symptoms of LVO - CTA pending Target Blood Pressure: - SBP < 220 sbp< 180 if no acute cta lesions Labs: - hemoglobin A1c - lipid panel Imaging: (urgency: STAT): - CT Angiogram Head and CT Angiogram Neck AND call back with results if abnormal Diagnostic Test: - echo without bubble study Therapy/Evaluation: - NPO until swallow evaluation - PT/OT evaluation - speech/swallow consultation Medication: - start statin with goal of LDL < 70 asa 325 today Other: - If patient has any neurological deterioration please call me back immediately - I have discussed my recommendations with the referring provider - telemetry monitoring - LDL < 70 Disposition: admit # Logistics Attestation of consult completion: The patient is located at: [facility]. Facility staff participated in the visit. I performed this telemedicine visit from my offsite office utilizing interactive 2 way audio and visual telecommunication technology. Total time spent in telemedicine encounter: I spent 21 minutes reviewing clinical data and/or imaging, obtaining history, examining the patient, communicating with the onsite care team, and in preparation of this report. Critical Care time: 21 minutes of this encounter were critical care time. Due to a high probability of clinically significant, life-threatening neurologic deterioration, the patient required my highest level of preparedness to intervene emergently. I spent this critical care time managing the patient in conjunction with on-site providers who requested my consultation. In addition to the above, this critical care time included recommendation and review of studies, including imaging; arranging an urgent treatment and management plan with on-site providers; evaluation of patient's response to treatment; and documentation. This critical care time was performed to assess and manage the high probability of imminent, life-threatening deterioration that could result in neurologic catastrophe. # Demographics First Name: Rosalinda Last Name: Yayo Facility: [facility] Electronically signed at 07/04/2024 07:09 ([place] Time) by Erickson Mendoza MD Neuro Consult Order placed for: Yes YAMILET MENDOZA MD July 04, 2024 07:10
[2024-07-04 07:11] LABS: ANION GAP 5 (8-16); BLOOD UREA NITROGEN 17 MG/DL (7-18); BUN/CREATININE RATIO 13.5 (10.0-20.0); CALCIUM 9.3 MG/DL (8.5-10.1); CHLORIDE 104 MMOL/L (99-107); CREATININE 1.26 MG/DL (0.60-1.10); GLUCOSE 115 MG/DL (70-104); SODIUM 138 MMOL/L (135-145); TOTAL CARBON DIOXIDE 28.6 MMOL/L (24-32); eCRCL 62 ML/MIN; eGFR 57 ML/MIN
[2024-07-04 07:12] LABS: APTT 32 SECONDS (22-32); INR 1.2 INR; PROTHROMBIN TIME 12.5 SECONDS (9.0-12.0)
--- NOTE | 2024-07-04 07:27 | RADIOLOGY REPORT ---
EXAM: XR Chest, 1 View CLINICAL INDICATION: Stroke Alert TECHNIQUE: Frontal view of the chest. COMPARISON: None FINDINGS: LUNGS AND PLEURAL SPACES: Unremarkable. No consolidation. No pneumothorax. HEART: Unremarkable. No cardiomegaly. MEDIASTINUM: Unremarkable. Normal mediastinal contour. BONES/JOINTS: Unremarkable. No acute fracture. OTHER FINDINGS: . IMPRESSION: No acute cardiopulmonary process.
--- NOTE | 2024-07-04 07:28 | RADIOLOGY REPORT ---
CLINICAL INFORMATION: 68 years old, Male; Stroke Alert. TECHNIQUE: Axial CTA images of the head and neck were obtained after the uneventful administration o f 100 mL Omnipaque 350 IV contrast. Coronal and sagittal reformatted images and MIP images were obtai daryn, reviewed, and stored. Measurements of carotid stenosis are made per NASCET criteria. All CT scan s at this medical facility are performed using dose modulation techniques as appropriate to a perform ed exam including the following: Automated exposure control was utilized; adjustment of the MA and/or KV according to patient size; and use of iterative reconstruction technique. CTDIvol = 30.6, 15.03, 0.07, 0.07 mGy DLP = 589.02 mGy-cm COMPARISON: None FINDINGS: CTA HEAD: Posterior cerebral arteries, basilar artery, and intracranial segments of the distal verteb ral arteries are normal in caliber and course with no evidence of aneurysm, large vessel occlusion, s ignificant stenosis, or vascular malformation. The anterior and middle cerebral arteries and intracra nial segments of the distal internal carotid arteries are normal in caliber and course with no eviden ce of aneurysm, large vessel occlusion, significant stenosis, or vascular malformation. Aplastic left anterior cerebral artery A1 segment, with both A2 segments arising from the right A1 segment. CTA NECK: Normal configuration of the aortic arch with patent origins of the brachiocephalic artery, left common carotid artery, and left subclavian artery. Subclavian arteries are patent with no signif icant stenosis. Moderate calcified plaque of the right carotid bifurcation and mild calcified plaque of the left carotid bifurcation without significant stenosis. The bilateral common carotid, internal carotid, and external carotid arteries are otherwise patent with no significant stenosis or evidence of dissection. Vertebral arteries are patent with no significant stenosis or evidence of dissection. Left vertebral artery is dominant. IMPRESSION: 1. CTA head demonstrates no evidence of large vessel occlusion, aneurysm, or significant stenosis. 2. CTA neck demonstrates no evidence of carotid or vertebral dissection or significant stenosis. 3. Additional findings as detailed above.
[2024-07-04] MEDS: aspirin 81mg tab.chew PO ONE (07:31)
[2024-07-04] MEDS ORDERED: potassium Cl 40MEQ/1/2NS 520ml 520 ML IV PRN (07:50)
[2024-07-04] MEDS ORDERED: morphine 2 MG/ML inj. syringe IV PRN ×2 (07:50)
[2024-07-04] MEDS ORDERED: ondansetron/PF 4mg/2ml inj IV PRN (07:50)
[2024-07-04] MEDS ORDERED: acetaminophen 325mg tablet PO PRN ×2 (07:50)
[2024-07-04] MEDS ORDERED: magnesium sulf-water 4G/100mL 100 ML IV PRN (07:50)
[2024-07-04] MEDS ORDERED: potassium Cl 20 mEq SR tablet PO PRN ×2 (07:50)
[2024-07-04] MEDS ORDERED: magnesium sulf-water 2g/50mL 50 ML IV PRN (07:50)
[2024-07-04] MEDS ORDERED: magnesium Cl slow-release 64mg tablet PO PRN (07:50)
[2024-07-04] MEDS ORDERED: mag hydrox/Alum hydrox/simeth 30ml oral suspension PO PRN (07:50)
[2024-07-04] MEDS ORDERED: magnesium hydroxide 30ml (MOM) UD suspension PO PRN (07:50)
[2024-07-04] MEDS: PERFLUTREN PROTEIN-A MICROSPHR (Optison) 0.22 MG/ML 3ML VIAL IV ONE (07:58)
[2024-07-04] MEDS: docusate sod 100mg capsule PO SCH (08:00)
[2024-07-04] MEDS: K and/or MAG REPLACEMENT MC SCH (08:00)
[2024-07-04] MEDS: normal saline 1000ml 1,000 ML IV SCH (08:08)
[2024-07-04 08:13] LABS: ALANINE AMINOTRANSFERASE 25 U/L (12-78); ALBUMIN/GLOBULIN RATIO 1.1 (1.1-1.5); ALKALINE PHOSPHATASE 75 IU/L (46-116); ASPARTATE AMINO TRANSFERASE 28 U/L (10-37); BILIRUBIN,DIRECT 0.2 MG/DL (0-0.3); BILIRUBIN,TOTAL 0.8 MG/DL (0.1-1.0); MAGNESIUM 2.1 MG/DL (1.5-2.4); TOTAL PROTEIN 7.8 G/DL (6.4-8.2)
[2024-07-04 08:18] LABS: HEMOGLOBIN A1C 5.6 % (4.5-6.2)
[2024-07-04] MEDS: atorvastatin 20mg tablet PO SCH (08:39)
[2024-07-04] MEDS: normal saline 1000ML IV soln IVB ONE (08:45)
[2024-07-04] MEDS: normal saline 1000ml 1,000 ML IV ONE (08:45)
[2024-07-04 10:27] LABS: BILIRUBIN,URINE NEGATIVE (Neg); CLARITY,URINE CLEAR (Clear); COLOR,URINE YELLOW (Yellow); GLUCOSE, URINE NEGATIVE (Neg); KETONES,URINE NEGATIVE (Neg); LEUKOCYTE ESTERASE ,URINE NEGATIVE (Neg); NITRITES, URINE NEGATIVE (Neg); OCCULT BLOOD,URINE NEGATIVE (Neg); PH,URINE 5.5 (4.8-8.0); PROTEIN,URINE NEGATIVE (Neg); UROBILINOGEN,URINE 0.2 E.U/dL (0.2-1.0)
[2024-07-04 10:35] LABS: UA COLLECTION TYPE CLN CATCH MIDSTREAM
[2024-07-04 13:45] VITALS: BP 143/99; PULSE 78; RESP 17; TEMP 98.8; O2SAT 99
--- NOTE | 2024-07-04 14:03 | HISTORY AND PHYSICAL-Residence ---
History & Physical Providers to CC Resident Creating Document: OFELIA GORDONJUDE MONTAGUE ~ History of Present Illness Reason for Admit\Complaint: CVA with Left hemiparesis History of Present Illness A 68-year-old male past medical history of hypertension, hyperlipidemia, atrial fibrillation, insomnia, DVT alcohol use presented to the ER with weakness of left upper and left lower extremities. Endorses that he went to sleep at 8:00 p.m. on last night he was doing fine when he woke up he had a weakness of left upper extremity and left lower extremity, which he describes as he dropped the phone while he was trying to grab the phone , could not able to lift the left hand and was not able to drag the left lower leg. He endorses slurring of speech and deviation of angle of mouth to right side from the morning. He denied seizures, vomitings, nausea, vision changes, fever, chest pain, palpitations, shortness of breaths, wheezing, abdominal pain, abdominal distention, decreased urine output, pedal edema. Discussed code status and patient wants to be in full code. Allergies: Coded Allergies: No Known Allergies (Unverified , 01/14/19) Home Medications Home Medications Active Thera Tablet (Multivitamin with Folic Acid) 400 Mcg Tablet 1 Each PO Q24H [thiamine tablet] 100 MG Tablet 100 Mg PO DAILY [folic acid tablet] 1 MG Tablet 2 Mg PO DAILY Culturelle (Lactobacillus Rhamnosus) 1 Each Capsule 10,000 Mmu PO Q12H Ecotrin* (Aspirin) 81 Mg Tablet.dr 81 Mg PO DAILY@0830 Metoprolol Succinate 25 Mg Tab.sr.24h 100 Mg PO DAILY Nitrostat SL* (Nitroglycerin) 0.4 Mg Tablet 0.4 Mg SL Q5MIN PRN Lipitor (Atorvastatin Calcium) 10 Mg Tablet 40 Mg PO DAILY Eliquis (Apixaban) 5 Mg Tablet 10 Mg PO BID 10 mg twice a day for 7 days and then drop the dose to 5 mg twice a day thereafter. Levofloxacin 750 Mg Tablet 750 Mg PO DAILY@11 Reported Trazodone Hcl 150 Mg Tablet 1 Tab PO HS 30 Days Lisinopril 20 Mg Tablet 1 Tab PO BID Past Medical History Past Medical History Right lower lung pneumonia Hypertension Anxiety and depression Marijuana use Alcohol use Hyperlipidemia Insomnia Major depressive disorder, unspecified Pulmonary embolism Pleural effusion Spondylosis Atrial fibrillation Past Surgical History Surgical History Comment Appendicectomy Past Social History Social History Comment He takes 3-4 beers per day. Smokes marijuana No other drugs intake. He denied smoking cigarettes. Alcohol Use: Heavy Drug Use: None Lives In: Home ROS All Other Systems: Reviewed and Negative ROS Reviewed in full and negative except positive pertinent in the HPI. Exam Vitals: Vital Signs Date Time Temp Pulse Resp B/P (MAP) Pulse Ox O2 Delivery O2 Flow Rate FiO2 07/04/24 13:55 Room Air 0.0 07/04/24 13:45 98.8 78 17 143/99 (114) 99 General: General: The patient is well developed, well nourished, nontoxic appearing and is in no acute distress. Deviation of angle of mouth to right side. Partial Left upper and lower eyelid weakness. Skin: [place], warm and dry with no rashes. HEENT: Head was normocephalic and atraumatic. Eyes - pupils equal, round, reactive to light and accommodation. Extraocular movements were intact. Conjunctivae were nonicteric. Ears - bilateral tympanic membranes were normal. The mouth and oropharynx were clear with moist mucous membranes. There were no pharyngeal exudates or erythema. Neck: Supple and nontender. There was no jugular venous distention, lymphadenopathy, thyromegaly or masses. Chest: Clear to auscultation bilaterally without wheezes, rales or rhonchi. No accessory muscle use. No dullness to percussion. Heart: Rate regular and rhythmic. S1, S2. No murmurs. Palpation of the chest wall was normal. No rubs or thrills. Abdomen: Soft, nontender and nondistended. Positive bowel sounds. No guarding or rebound. No hepatosplenomegaly or palpable masses. Extremities: No cyanosis, clubbing or edema. The patient moves all extremities. Pulses were equal and symmetric. Neurologic: Sensory system is intact. Slurred speech. Deviation of angle of mouth to the right side. Tone- Left upper extremity 4-/5 weakness & Left lower extremity 4-/5. Tone is reduced on left upper extremity and left lower extremity and normal on right side. Plantar: Extensor on left side and flexor right side. Normal gait. Equal ocular movements intact. Unable to extend his left hand slight pronator drift. Psychologic: The patient was oriented to person, place and time. The patient demonstrated appropriate judgement and insight. Diagnostic Data Last Recorded Lab Results: 07/04/24 0638 07/04/24 0638 Diagnostic Data: Laboratory Tests Test 07/04/24 06:38 Prothrombin Time 12.5 SECONDS (9.0-12.0) H INR International Normalized Ratio 1.2 INR Activated Partial Thromboplast Time 32 SECONDS (22-32) Coagulation Comments Head CT showed small-vessel ischemia degenerative changes. CT angiography of head and neck is normal MRI brain showed acute subacute posterior right frontal infarct. Mild to moderate changes of chronic microvascular ischemic changes. Advance Care Planning Advanced Care planning: Add on additional 30 min Additional Plan CVA with left hemiparesis Acute ischemic stroke Acute/ subacute posterior right frontal infarct. Blood pressure is in 140s. CBC , CMP okay except serum creatinine of 1.26. Glucose is 115 and A1c is 5.6. Consulted tele neurology, Dr. Eyal Quintana and appreciate the recommendations for continuation of aspirin and atorvastatin. We concerned about the stroke after patient on aspirin and we thought of starting the clopidogrel but tele neurologist recommended for aspirin 325 followed by 81 mg and statin, DOAC. Thrombolysis exclusion is due to patient on anticoagulation. Recommended for SBP less than 220 to allow permissive hypertension Patient was already on the apixaban 5 mg for AFib and we are continuing the apixaban 5 mg p.o. b.i.d.. We will continue to monitor telemetry Urine analysis is negative EKG shows heart rate of 86, atrial fibrillation, RBBB and LAFB with questionable bifascicular block Hypertension We will monitor the blood pressures blood pressures are in 145 Currently we are allowing the patient in permissive hypertension of SBP less than 220 Held the lisinopril Hyperlipidemia Started on atorvastatin 80 mg and lipid panel is ordered and we will follow up with the results and adjust the dose. Atrial fibrillation DVT history On apixaban 5 mg p.o. b.i.d and metoprolol 100 mg p.o. daily of medication. We will continue apixaban 5 mg p.o. b.i.d and we will start metoprolol after permissive hypertension. NITA Serum creatinine is 1.26 Continue to monitor serum creatinine Alcohol use disorder On detox protocol Code status: Full code Diet: Swallow test and then heart healthy diet. PT: Ordered Prognosis: [facility] Date of Service: July 04, 2024 Billing Provider: REENA DIAZ MD Common Visit Codes: 60142-RNGLVRL INP/OBS CARE (HIGH) Secondary Visit Codes: 67589-JAQYPCUS CARE PLAN 30 MINUTES FARHAT GORDON, JUDE July 04, 2024 14:03 REENA DIAZ MD July 04, 2024 19:12
[2024-07-04] MEDS ORDERED: clopidogrel 300mg tablet PO ONE (14:30)
--- NOTE | 2024-07-04 14:30 | RADIOLOGY REPORT ---
PROCEDURE: MR MRI HEAD INDICATION: Stroke EXAM DATE: 07/04/2024 11:48 AM COMPARISON: None TECHNIQUE: MRI of the brain without intravenous contrast. FINDINGS: Restricted diffusion in the posterior right frontal lobe with associated FLAIR signal abnormality con sistent with an acute/subacute infarct. There is no evidence of acute intracranial hemorrhage, extra-axial collection, mass effect, midline s hift, herniation or hydrocephalus. The ventricles, sulci and cisterns appear age appropriate. Kgqi-pg-zicupyfu changes of chronic microvascular ischemic disease. There are no signal abnormalities on the susceptibility weighted sequences. The major vascular flow voids are present. Right frontal sinus disease. The surrounding soft tissues and osseous structures are unremarkable. IMPRESSION: 1. Acute/ subacute posterior right frontal infarct. Clinical correlation and continued follow-up is recommended. 2. Xplh-to-zeovrhgy changes of chronic microvascular ischemic disease. Right frontal sinus disease. Critical Result: Stroke Alert Findings discussed with REENA DIAZ at 07/04/2024 02:22 PM, and acknowledged receipt and understanding of the findings. HS:Y
[2024-07-04] MEDS ORDERED: haloperidol lactate 5mg/ml inj IM PRN (15:05)
[2024-07-04] MEDS ORDERED: LORazepam 2 mg/ml vial IV PRN (15:05)
[2024-07-04] MEDS ORDERED: dextrose 50%-water 50ml dispensing syringe IV PRN (15:05)
[2024-07-04] MEDS ORDERED: haloperidol 5mg tablet PO PRN (15:05)
[2024-07-04] MEDS: folic acid 1mg/0.2ml inj IV SCH (16:55)
[2024-07-04 18:00] VITALS: BP 141/79; PULSE 77; RESP 16; TEMP 97.9; O2SAT 94
[2024-07-04] MEDS: thiamine 100mg/ml 2ml inj. IV SCH (19:45)
[2024-07-04] MEDS: apixaban 5mg tablet PO SCH (19:45)
--- NOTE | 2024-07-04 19:58 | CARDIOLOGY REPORT ---
APPROVED REPORT EXAM: Comprehensive 2D, Doppler, and color-flow Echocardiogram. Patient Location: ED2 Blood Pressure: 138/91 mmHg Heart Rate: 68-80 bpm Rhythm: Atrial Fibrillation Indications Abnormal EKG Hypertension No community center director Previous echo 01/14/19 55-60% EF ; tr TR 2D Dimensions LA Diam4.8 cm IVSd 1.3 (0.7-1.1cm) LVDd 5.2 cm PWd 1.2 (0.7-1.1cm) IVSs 1.8 (0.8-1.2cm) LVDs 3.3 (2.5-4.0cm) Aortic Root(2D) 3.3 cm PWs 1.7 (0.8-1.2cm) LVOT Diameter 2.35 (1.8-2.4cm) LVEF(%) 65.2 (>50%) Ao Asc Diam.3.62 cmFS (%) 36.0 % SV 82.6 ml CO 6.3 L/min M-Mode Dimensions MV EPSS 1.1 (<0.5cm) Aortic Valve AoV Peak Ehsan. 113.8 cm/s AoV VTI 22.8 cm AO Peak GR. 5.2 mmHg AO Mean GR. 3 mmHg LVOT VTI 16.06 cm LVOT Peak Ehsan. 83.6 cm/s BAILEY(VTI)/BSA 3.06 cm2/m2 BAILEY (VTI) 3.06 cm2 Mitral Valve MV E Velocity 70.3 cm/s MV Peak Gr. 4 mmHg MV DECEL TIME 136 ms MV PHT 48 ms MVA (PHT) 4.58 cm2 MV IRau019.3 cm/s Tricuspid Valve TR P. Velocity 252 cm/s RAP ESTIMATE 10 mmHg TR Peak Gr. 25 mmHg RVSP 35 mmHg LEFT VENTRICLE Normal LV size and function. Mild concentric hypertrophy. Overall LVEF is 65%. RIGHT VENTRICLE RV appears moderately dilated with normal contractility. RVSP is estimated at 35 mmHG. ATRIA Left atrium is moderately dilated. AORTIC VALVE Trileaflet AV appears sclerotic without stenosis. No insufficiency. MITRAL VALVE MV is thickened with mild annular calcification and no stenosis. Mild mitral regurgitation. TRICUSPID VALVE The tricuspid valve is normal in structure. Mild tricuspid regurgitation. PULMONIC VALVE The pulmonary valve is normal in structure. Trace pulmonic regurgitation. GREAT VESSELS The aortic root is normal in size. Ascending aorta measured at 3.6 cm. IVC is not well visualized. PERICARDIUM There is no pericardial effusion. Other Information Study Quality: Adequate Conclusion Overall LVEF is 65%. Normal LV size and function. Mild concentric hypertrophy. RV appears moderately dilated with normal contractility. RVSP is estimated at 35 mmHG. Trileaflet AV appears sclerotic without stenosis. No insufficiency. Mild mitral regurgitation. Mild tricuspid regurgitation. Trace pulmonic regurgitation. There is no pericardial effusion.
[2024-07-04] MEDS: traZODone 150mg tablet PO SCH (21:04)
[2024-07-05 06:00] VITALS: BP 131/87; PULSE 80; RESP 18; TEMP 98.6; O2SAT 97
[2024-07-05 06:07] LABS: BASOPHILS # (AUTO) 0.1 X10'3 (0-0.2); BASOPHILS % (AUTO) 0.8 % (0-1); EOSINOPHILS # (AUTO) 0.2 X10'3 (0-0.9); HEMATOCRIT 48.2 % (42.0-52.0); HEMOGLOBIN 16.3 g/dl (14.0-17.9); LYMPHOCYTES # (AUTO) 1.3 X10'3 (1.1-4.8); LYMPHOCYTES % (AUTO) 20.1 % (21-51); MEAN CORPUSCULAR HEMOGLOBIN 31.9 PG (27.0-31.0); MEAN CORPUSCULAR HGB CONC 33.9 g/dL (33.0-36.5); MEAN CORPUSCULAR VOLUME 94.2 FL (78-98); MEAN PLATELET VOLUME 10.1 FL (7.4-10.4); MONOCYTES # (AUTO) 0.4 X10'3 (0-0.9); MONOCYTES % (AUTO) 6.6 % (2-12); NEUTROPHILS # (AUTO) 4.5 X10'3 (1.8-7.7); NEUTROPHILS % (AUTO) 69.5 % (42-75); PLATELET COUNT 143 X10'3 (140-440); RED BLOOD COUNT 5.11 X10'6 (4.70-6.10); RED CELL DISTRIBUTION WIDTH 13.8 % (11.5-14.5); WHITE BLOOD COUNT 6.5 X10'3 (4.5-11.0)
[2024-07-05 06:46] LABS: ALANINE AMINOTRANSFERASE 20 U/L (12-78); ALBUMIN 3.3 G/DL (3.4-5.0); ALKALINE PHOSPHATASE 60 IU/L (46-116); ANION GAP 9 (8-16); ASPARTATE AMINO TRANSFERASE 20 U/L (10-37); BILIRUBIN,TOTAL 0.9 MG/DL (0.1-1.0); BLOOD UREA NITROGEN 14 MG/DL (7-18); BUN/CREATININE RATIO 13.3 (10.0-20.0); CALCIUM 8.6 MG/DL (8.5-10.1); CHLORIDE 105 MMOL/L (99-107); CHOL/HDL RATIO 2.3 (0.00-4.99); CHOLESTEROL 117 MG/DL (0-200); CREATININE 1.05 MG/DL (0.60-1.10); GLUCOSE 107 MG/DL (70-104); HDL CHOLESTEROL 52 MG/DL (35-60); LDL CHOLESTEROL 55 MG/DL (50-100); MAGNESIUM 1.9 MG/DL (1.5-2.4); POTASSIUM 3.7 MMOL/L (3.5-5.1); SODIUM 139 MMOL/L (135-145); TOTAL CARBON DIOXIDE 24.9 MMOL/L (24-32); TOTAL PROTEIN 6.7 G/DL (6.4-8.2); TRIGLYCERIDES 87 MG/DL (20-135); eCRCL 75 ML/MIN; eGFR 70 ML/MIN
[2024-07-05] MEDS: aspirin 81mg, enteric-coated 1 TAB TABLET.DR PO SCH (07:44)
[2024-07-05 08:00] VITALS: RESP 18; O2SAT 97
[2024-07-05] MEDS ORDERED: clopidogrel 75mg tablet PO SCH (08:00)
[2024-07-05 09:29] LABS: THYROID STIMULATING HORMONE 1.89 ulU/ml (0.34-4.50)
[2024-07-05] MEDS ORDERED: IBUP-1986 PO (10:24)
[2024-07-05] MEDS ORDERED: SILD100T70 PO (10:24)
[2024-07-05] MEDS ORDERED: METO-411 PO (10:24)
[2024-07-05] MEDS ORDERED: RIVA10TA PO (10:24)
[2024-07-05] MEDS ORDERED: LISI1TAB53 PO (10:24)
[2024-07-05] MEDS ORDERED: ATOR40TA72 PO (10:24)
--- NOTE | 2024-07-05 13:06 | DISCHARGE SUMMARY-Residence ---
Discharge Summary Providers to CC Resident Creating Document: ANA ECHOLS, RES ~ Discharge Summary Admission Diagnosis: acute ischemic stroke Hospital Course DATE OF ADMISSION: 07/04/2024 DATE OF DISCHARGE: 07/05/2024 Discharge Diagnosis\Comment: # Acute/ subacute posterior right frontal ischemic infarct w/ residual left hemiparesis # HTN # HLD # A fib w/ CVR on xarelto # History of DVT on xarelto # NITA -renal tubular stasis, normalized # Alcohol use disorder Operations\Procedures: None Consultants: adonay Romero tele neuro consultation Complications: None Condition on DC: Stable Continued Medications: Aspirin (Ecotrin*) 81 Mg Tablet. 81 MG PO DAILY@0830, #30 TAB.SR Atorvastatin Calcium (Atorvastatin Calcium) 40 Mg Tablet 1 TAB PO DAILY for High cholesterol [folic acid tablet] () 1 MG TABLET 2 MG PO DAILY, #30 Lisinopril/Hydrochlorothiazide (Lisinopril-Hctz 20-25 mg Tab) 20 Mg-25 Mg Tablet 1 TAB PO DAILY for HTN Metoprolol Succinate (Metoprolol Succinate) 25 Mg Tab.sr.24h 100 MG PO DAILY, #120 TAB.SR Multivitamin with Folic Acid (Thera Tablet) 400 Mcg Tablet 1 EACH PO Q24H, #30 TAB Rivaroxaban (Xarelto) 10 Mg Tablet 1 TAB PO DAILY for Blood thinner [thiamine tablet] () 100 MG TABLET 100 MG PO DAILY, #30 Trazodone Hcl (Trazodone Hcl) 150 Mg Tablet 1 TAB PO HS for 30 Days, #30 TAB Discontinued Medications: Apixaban (Eliquis) 5 Mg Tablet 10 MG PO BID, #120 TAB 10 mg twice a day for 7 days and then drop the dose to 5 mg twice a day thereafter. Atorvastatin Calcium (Lipitor) 10 Mg Tablet 40 MG PO DAILY, #30 TAB Ibuprofen (Ibuprofen) 800 Mg Tablet 1 TAB PO TID PRN for pain Levofloxacin (Levofloxacin) 750 Mg Tablet 750 MG PO DAILY@11, #7 TAB Lisinopril (Lisinopril) 20 Mg Tablet 1 TAB PO BID, #30 TAB Metoprolol Succinate (Metoprolol Succinate) 100 Mg Tab.sr.24h 1 TAB PO DAILY for HTN Nitroglycerin SL* (Nitrostat SL*) 0.4 Mg Tablet 0.4 MG SL Q5MIN PRN for chest pain, #100 TAB Sildenafil Citrate (Sildenafil Citrate) 100 Mg Tablet 0.5-1 TAB PO PRN Discharge Summary: A 68-year-old male with a past medical history of hypertension, hyperlipidemia, AFib with CVR on Xarelto, history of DVT on Xarelto, alcohol use disorder and insomnia presented with left upper and lower extremities weakness on waking up at the morning of 07/04/24, last time normal was 07/03/24 at 8pm before he went to bed along with slurred speech and drooping saliva and weakness on the left angle of the mouth. Hospital course: He was admitted to the hospital for further stroke workup and management including blood pressure control. He had CT head W/O IV contrast on 07/04/2024 showed IMPRESSION: 1. Small vessel ischemic/degenerative changes. 2. Generalized brain atrophy. 3. No acute intracranial hemorrhage, midline shift or mass effect. If symptoms persist, further evaluation with MRI is recommended. CTA H&N on 07/04/2024 showed IMPRESSION: 1. CTA head demonstrates no evidence of large vessel occlusion, aneurysm, or significant stenosis. 2. CTA neck demonstrates no evidence of carotid or vertebral dissection or significant stenosis. His 2D echocardiogram on 07/04/2024 showed LVEF 65%, mild concentric hypertrophy LV, RVSP 35 mm Hg, mild MR, TR, WI and no pericardial effusion. Head MRI W/O IV contrast on 07/04/2024 showed IMPRESSION: 1. Acute/ subacute posterior right frontal infarct. Clinical correlation and continued follow-up is recommended. 2. [id number] changes of chronic microvascular ischemic disease. Right frontal sinus disease. Tele Neuro consultation, Dr Quintana was requested, NIHSS Total for score, recommended that a thrombolytic exclusion was > 4.5 hours, target blood pressure control< 220/180 mm Hg, CVA works up, goal of LDL<70 and loading dose of aspirin followed by regular 81 mg daily. Patient said that he is no longer on Eliquis 5 mg because of the economic issue, and currently on Xarelto regularly before the CV event. We continued post stroke protocol. Started ASA loading dose f/by regular ones and Atorvastatin 80 mg daily. Daily monitoring for renal function which is showing improvement and touching to his baseline today. We controlled his alcohol withdrawal symptoms with hospital protocol. DVT prophylaxis was achieved with the continuing his anticoagulation. Swallow tests were performed by making sure he has no problems in swallowing from involvement of bulbar palsy. His neurological monitoring was done throughout the hospitalization. All of his medication were reconciled and continued appropriately. All of the patient's, and family members' questions and concerns were addressed with the best knowledge of our team including the possible etiologies of CVA which is most likely from ischemic stroke and explained about the exclusion of carotid artery stenosis, possible side effects- CVA of Sildenafil and drug interactions with nitroglycerin sublingual tablet for chest pain. Patient had desired to go home and patient's recovery was fasten than our expectations. Today, all of his labs were reviewed WNL including WBC 6.5, hematocrit 48.2, hemoglobin 16.3, platelet count 143, serum sodium 139, potassium 3.7, BUN 14 and creatinine 1.05, RBS 107, TSH 1.89. All of his vitals were stable at the moment with temp 98.6 F, WI 80/minute, RR 18/minute, BP 131/87 mm Hg, pulse oximetry 97% on room air. On examination, General: Well alert, well oriented, not confused, not agitated, not in acute distress, well cooperated during the physical. HEENT: Conjunctive are pink, sclerae clear, no icterus, pupil is equal in both sides, reactive to light, no ear discharge, no pharyngeal erythema or an edema, mouth and lips are moist. Noticed slurred speech and drooling of saliva at the left angle of the mouth while speaking, which are getting better than yesterday. Neck: Supple, no JVD, no lymphadenopathy and thyromegaly. Lungs:Equal air entry on both lungs, no additional sounds Heart: S1-S2 irregularly regular rhythm and, regular rate, no gallops, no rubs, no murmurs Abdomen: No visible peristalsis, Bowel sounds present on auscultation, soft, nontender, no guarding, no rigidity Extremities: No obvious deformities, no pitting edema bilaterally, capillary refill intact, able to wiggle toes both sides, peripheral pulsations are intact on both sides [employer]: Deviation of the mouth, sensory intact, muscular Power-left upper extremity 4/5, left lower extremity 4/5, tonsils reduced in the left upper extremity WNL on the right side, could move all 4 extremities, extensor plantar response on the left side and flexor on the right side. Normal gait. Equal ocular movements intact and unable to extend his left hand and slight pronator drift which are getting better than yesterday. Musculoskeletal: No joint swelling, deformities, inflammations, and no scoliosis and back tenderness Skin: No active skin lesions and rashes Discharge instructions: -return to ER for any emergent conditions including any new progressive neurological deficits and changes, uncontrolled high blood pressure, headaches and any new double/blurred vision, weakness extremities etc. -medication compliance especially for blood thinners and anti-lipid agents play important role in prevention of further stroke -PCP follow up in 1-2 weeks after discharge for further management including blood works -PT/ST/OT were recommended, heart healthy diet Resident attestation: Patient was seen, examined and discussed with attending MD, Dr. Ema ECHOLS MD Internal Medicine Resident, PGY2 [facility] *Problems/Diagnosis: (1) Cerebral infarction Status: Acute Total Time Spent on D/C: > 30 Minutes Date of Service: July 05, 2024 Billing Provider: REENA DIAZ MD Common Visit Codes: 09901-KKY/OBS DISCH DAY >30min Problem Qualifiers (1) Cerebral infarction: Cerebral infarction mechanism: unspecified mechanism Qualified Codes: I63.9 - Cerebral infarction, unspecified ANA ECHOLS RES July 05, 2024 13:06 REENA DIAZ MD July 05, 2024 20:24
[2024-07-06] MEDS ORDERED: LORazepam 2 mg/ml vial IV PRN (15:05)
[2024-07-06] MEDS ORDERED: LORazepam 1 MG tablet PO PRN (15:05)
[2024-07-08] MEDS ORDERED: thiamine 100mg tablet PO SCH (08:00)
[2024-07-08] MEDS ORDERED: folic acid 1mg tablet PO SCH (08:00)
[2024-07-08] MEDS ORDERED: LORazepam 1 MG tablet PO PRN (15:05)
[2024-07-08] MEDS ORDERED: LORazepam 2 mg/ml vial IV PRN (15:05)
== END 2024-07-05 14:00 | disposition home or self-care (01) | DRG 64 ==
LOC: ER 06:29 → ED HOLD 07:54 → ORTHO 4S 13:40
PROVIDERS: ADMIT Internal Medicine; ATTEND Internal Medicine
PROC: B3251ZZ Computerized Tomography (CT Scan) of Bilateral Common Carotid Arteries using Low Osmolar Contrast (ICD-10-PCS; principal; 2024-07-04)
PROC: B32G1ZZ Computerized Tomography (CT Scan) of Bilateral Vertebral Arteries using Low Osmolar Contrast (ICD-10-PCS; 2024-07-04)
PROC: B32R1ZZ Computerized Tomography (CT Scan) of Intracranial Arteries using Low Osmolar Contrast (ICD-10-PCS; 2024-07-04)
DX: I63.9 Cerebral infarction, unspecified (principal); N17.0 Acute kidney failure with tubular necrosis; I69.354 Hemiplegia and hemiparesis following cerebral infarction affecting left non-dominant side; I10 Essential (primary) hypertension; E78.5 Hyperlipidemia, unspecified; F32.A Depression, unspecified; F10.20 Alcohol dependence, uncomplicated; I48.91 Unspecified atrial fibrillation; G47.00 Insomnia, unspecified; Z86.718 Personal history of other venous thrombosis and embolism; Z79.01 Long term (current) use of anticoagulants
CPT/HCPCS: 36415; 70450; 70496; 70498; 70551; 71045; 80048; 80053; 80061; 80076; 81003; 82948; 83036; 83735; 84443; 85025; 85610; 85730; 92508; 92616; 93005; 93306; 97161; 97530; 99291; G0378; J3411; J3490; J7030; Q9967